=== PATIENT | male | born 1965 | race Caucasian/White ===

== ENCOUNTER 2022-08-01 13:03 | Emergency (ER) | payer SELFPAY ==
[~2022-08-01] VITALS: Ht 185.5 cm; Wt 86.1 kg
[2022-08-01] MEDS ORDERED: RX-ONDANSETRON 4 MG ODT (ZOFRAN) PPK #4 PO STA (15:15)
--- NOTE | 2022-08-01 15:15 | ED Cough/URI ---
General Chief Complaint: Cough/Cold/Flu Symptoms Stated Complaint: FEVER | NAUSEA | Nursing Triage Note: PT AMB TO TRIAGE WITH COMPLAINT OF COUGH, FEVER, CHILLS, CONGESTION. STATES STARTED LAST WEEK. PT DRINKING COFFEE WHEN CALLED BACK TO TRIAGE. Allergies and Home Medications Allergies Coded Allergies: Penicillins (Verified Allergy, Unknown, 08/01/22) tomato (Verified Allergy, Unknown, 08/01/22) Past [id number]-[id number] Hx Patient Social History Tobacco Use?: No Use of E-Cig and/or Vaping dev: No Substance use?: No Alcohol Use?: No Pt feels they are or have been: No Physical Exam Vital Signs - First Documented 08/01/22 13:20 Temp 36.7 Pulse 81 Resp 16 B/P (MAP) 151/81 (104) Pulse Ox 100 O2 Delivery Room Air Capillary Refill : Less Than 3 Seconds Height: '" Weight: lbs. oz. kg; 25.00 BMI Method: Progress/Results/Core Measures Suspected Sepsis SIRS Temperature: Pulse: 81 Respiratory Rate: 16 Blood Pressure 151 /81 Mean: 104 Results/Orders Lab Results Laboratory Tests Test 08/01/22 14:29 Range/Units Influenza Type A (RT-PCR) Not Detected Not Detecte Influenza Type B (RT-PCR) Not Detected Not Detecte SARS-CoV-2 RNA (RT-PCR) Detected H Not Detecte My Orders Orders - ISIDRA PICHARDO APRN Covid 19 Inhouse Test (08/01/22 14:20) Influenza A And B By Pcr (08/01/22 14:20) Vital Signs/I&O 08/01/22 13:20 Temp 36.7 Pulse 81 Resp 16 B/P (MAP) 151/81 (104) Pulse Ox 100 O2 Delivery Room Air Capillary Refill : Less Than 3 Seconds Blood Pressure Mean: 104 Departure Impression Primary Impression: COVID-19 Disposition: 01 HOME, SELF-CARE Condition: Stable Departure-Patient Inst. Decision time for Depature: 15:14 Referrals: NO,LOCAL PHYSICIAN (PCP/Family) Primary Care Physician Patient Instructions: COVID-19 (DC) Add. Discharge Instructions: Plan: 1. Discharge home. 2. Stay home for 5 days and then mask when in public for additional 5 days. If you are still running fever, you will need to stay home until you are fever free. 3. Wash your hands frequently, disinfect surfaces at home. Try to isolate yourself from others in the house as much as you are able. 4. Clean areas that may have blood, stool, or body fluids on them. 5. Cover your mouth and nose when you cough or sneeze, throw away tissues, and wash hands immediately. 6. Return to ER if you develop: trouble breathing, persistent pain or pressure in the chest, new confusion, inability to wake or stay awake, pale, bazzi, blue- colored skin, lips, or nail beds depending on skin tone. 7. Return to ER for any other new, concerning, or worsening symptoms. All discharge instructions reviewed with patient and/or family. Voiced understanding. ISIDRA PICHARDO SENIOR [employer] Aug 01, 2022 15:15
[2022-08-01 15:16] VITALS: BP 151/81
== END 2022-08-01 15:20 | disposition home or self-care (01) ==
LOC: ER 13:06
DX: U07.1 COVID-19 (principal); R50.9 Fever, unspecified; R05.9 Cough, unspecified
CPT/HCPCS: 87636; 99283